=== PATIENT | female | born 1970 | race Two or more races ===

== ENCOUNTER 2022-09-04 15:19 | Emergency (ER) | payer OTHER ==
[~2022-09-04] VITALS: Ht 160 cm; Wt 111.7 kg
[2022-09-04 15:48] VITALS: BP 155/81
[2022-09-04] MEDS ORDERED: KETOROLAC TROMETH 60MG/2ML VIAL IM ONE (16:45)
[2022-09-04] MEDS ORDERED: IBUP800T27 PO (18:13)
[2022-09-04] MEDS ORDERED: METH750T22 PO (18:13)
== END 2022-09-04 18:17 | disposition home or self-care (01) ==
LOC: ER 15:21
DX: S52.125A Nondisplaced fracture of head of left radius, initial encounter for closed fracture (principal); S43.402A Unspecified sprain of left shoulder joint, initial encounter; S63.92XA Sprain of unspecified part of left wrist and hand, initial encounter; S29.011A Strain of muscle and tendon of front wall of thorax, initial encounter; Z88.6 Allergy status to analgesic agent; Z88.0 Allergy status to penicillin; W01.0XXA Fall on same level from slipping, tripping and stumbling without subsequent striking against object, initial encounter; Y93.89 Activity, other specified; Y92.89 Other specified places as the place of occurrence of the external cause; Y99.8 Other external cause status
CPT/HCPCS: 29105; 71046; 73030; 73080; 73130; 96372; 99284; J1885

== ENCOUNTER 2024-03-12 07:25 | Inpatient (IN) | payer BC, OTHER ==
[~2024-03-12] VITALS: Ht 161.3 cm; Wt 109.0 kg
[~2024-03-12 07:25] MED LIST: IBUP-1456 PO; METH-1182 PO
[2024-03-12 08:06] LABS: Basophils # (auto) 0.1 10 ^3/uL (0-0.2); Basophils % (auto) 1.4 % (0.0-2.0); Eosinophils # (auto) 0.5 10 ^3/uL (0-0.8); Eosinophils % (auto) 11.4 % (0.0-7.0); Hematocrit 38.1 % (36.0-46.0); Hemoglobin 12.2 g/dL (12.2-16.2); Lymphocytes # (auto) 1.5 10 ^3/uL (0.4-5.4); Lymphocytes % (auto) 31.3 % (10.0-50.0); Mean Corpuscular Hemoglobin 27.5 pg (28.0-32.0); Mean Corpuscular Hgb Conc. 32.1 g/dL (32.0-36.0); Mean Corpuscular Volume 85.8 fL (80.0-100.0); Monocytes # (auto) 0.3 10 ^3/uL (0-1.3); Monocytes % (auto) 5.4 % (0.0-12.0); Neutrophils # (auto) 2.4 10 ^3/uL (1.6-8.6); Neutrophils % (auto) 50.5 % (37.0-80.0); Red Blood Cells 4.45 10^6/uL (4.0-5.20); Red Cell Distribution Width 14.9 % (11.8-14.3); White Blood Cell 4.7 10^3/uL (4.4-10.8)
[2024-03-12 08:11] LABS: Alanine Aminotransferase 40 U/L (7-40); Albumin 4.5 g/dL (3.2-4.8); Alkaline Phosphatase 135 U/L (46-116); Anion Gap 7 (5-15); Aspartate Aminotransferase 24 U/L (13-40); BUN/Creatinine Ratio 13.1 (10.0-20.0); Bilirubin, Total 0.4 mg/dL (0.2-1.0); Blood Urea Nitrogen 11 mg/dL (9-23); Calcium 9.5 mg/dL (8.5-10.1); Carbon Dioxide 26 mmol/L (20-30); Chloride 107 mmol/L (98-107); Glucose 106 mg/dL (74-106); Potassium 3.7 mmol/L (3.5-5.1); Sodium 140 mmol/L (136-145); Total Protein 7.1 g/dL (5.7-8.2)
[2024-03-12] MEDS ORDERED: metroNIDAZOLE 500MG/100ML 100 ML IV ONE (08:30)
[2024-03-12] MEDS ORDERED: levoFLOXacin 500MG 100 ML IV ONE (08:30)
[2024-03-12 08:59] LABS: Urine Bacteria FEW /hpf (None Seen); Urine Blood Negative /uL (Negative); Urine Clarity Turbid (Clear); Urine Color Light-Yellow (Yellow); Urine Hyaline Cast FEW /lpf (0 - 2); Urine Mucus FEW (None Seen); Urine Protein, UAD Negative (Negative); Urine Specific Gravity 1.019 (1.001-1.035); Urine Urobilinogen Normal (Negative); Urine WBC 18 /hpf (0 - 5); Urine pH 5.5 (5.0-9.0)
[2024-03-12] MEDS: PANTOPRAZOLE 40 MG/10 ML VIAL INJ IV ONE (09:30)
[2024-03-12] MEDS ORDERED: MORPHINE SULFATE 4 MG/ML SYR/VIAL IV PRN (09:30)
[2024-03-12] MEDS ORDERED: NITROGLYCERIN 0.4 MG SL TAB SL PRN (09:30)
[2024-03-12] MEDS: PANTOPRAZOLE 40 MG/10 ML VIAL INJ IV SCH (10:00)
[2024-03-12 10:02] LABS: INR 1.12 (0.9-1.15); Prothrombin Time 11.8 sec (9.3-11.8)
[2024-03-12] MEDS: METOPROLOL TARTRATE 25 MG TAB PO SCH (10:33)
[2024-03-12] MEDS: ASPirin 81 mg TAB PO SCH (10:34)
[2024-03-12] MEDS: DOCUSATE SOD 100 MG CAP PO SCH (10:34)
[2024-03-12 12:36] LABS: Triglycerides 65 mg/dL (< 150)
[2024-03-12 12:37] LABS: LDL Cholesterol 148 mg/dL (< 100)
[2024-03-12 12:38] LABS: Cholesterol 212 mg/dL (< 200); HDL Cholesterol 56 mg/dL (40-59)
[2024-03-12] MEDS ORDERED: hydrALAZINE HCL 20 MG/ML VL IV PRN (17:45)
[2024-03-12] MEDS ORDERED: LORazepam 2MG/ML-1ML VIAL IV PRN (19:45)
[2024-03-12] MEDS: ATORVASTATIN 20 MG TAB PO SCH (22:00)
[2024-03-12 22:01] VITALS: PULSE 74; RESP 16; O2SAT 100
[2024-03-13] VITALS (11 sets, daily range): BP systolic 105–147; BP diastolic 48–77; PULSE 63–79; RESP 15–20; TEMP 97.2–98.6; O2SAT 95–98
[2024-03-13] MEDS: ENOXAPARIN SOD 120 MG/0.8 ML SYRINGE SC SCH (00:47)
[2024-03-13 06:43] LABS: Basophils # (auto) 0.1 10 ^3/uL (0-0.2); Eosinophils # (auto) 0.5 10 ^3/uL (0-0.8); Eosinophils % (auto) 10.1 % (0.0-7.0); Hemoglobin 11.4 g/dL (12.2-16.2); Lymphocytes # (auto) 1.3 10 ^3/uL (0.4-5.4); Lymphocytes % (auto) 24.9 % (10.0-50.0); Mean Corpuscular Hemoglobin 27.9 pg (28.0-32.0); Mean Corpuscular Hgb Conc. 32.5 g/dL (32.0-36.0); Mean Corpuscular Volume 85.9 fL (80.0-100.0); Monocytes # (auto) 0.4 10 ^3/uL (0-1.3); Monocytes % (auto) 6.9 % (0.0-12.0); Neutrophils # (auto) 3.1 10 ^3/uL (1.6-8.6); Neutrophils % (auto) 57.1 % (37.0-80.0); Red Blood Cells 4.07 10^6/uL (4.0-5.20); Red Cell Distribution Width 15.1 % (11.8-14.3); White Blood Cell 5.4 10^3/uL (4.4-10.8)
[2024-03-13 07:05] LABS: Alanine Aminotransferase 43 U/L (7-40); Alkaline Phosphatase 117 U/L (46-116); Anion Gap 6 (5-15); Aspartate Aminotransferase 23 U/L (13-40); BUN/Creatinine Ratio 15.8 (10.0-20.0); Blood Urea Nitrogen 12 mg/dL (9-23); Carbon Dioxide 27 mmol/L (20-30); Chloride 106 mmol/L (98-107); Glucose 97 mg/dL (74-106); Potassium 3.7 mmol/L (3.5-5.1); Sodium 139 mmol/L (136-145)
[2024-03-13 07:06] LABS: Total Protein 6.4 g/dL (5.7-8.2)
[2024-03-13 07:26] LABS: Bilirubin, Total 0.5 mg/dL (0.2-1.0)
[2024-03-13] MEDS: ACETAMINOPHEN 325 MG TAB PO PRN (11:24)
[2024-03-13] MEDS: cefTRIAXone 1GM/50ML D5W 50 ML IV SCH (11:27)
[2024-03-13] MEDS: ONDANSETRON HCL 4 MG/2 ML VIAL IV PRN (11:35)
[2024-03-13] MEDS: IBUPROFEN 600 MG TAB PO ONE (15:36)
[2024-03-13 16:52] LABS: Amphetamine Screen, Urine Neg (NEGATIVE); Barbiturate Scree,Urine Neg (NEGATIVE); Benzodiazephine Screen, Urine Neg (NEGATIVE)
[2024-03-13 16:53] LABS: Cannabinoid Screen, Urine Neg (NEGATIVE); Cocaine Screen, Urine Neg (NEGATIVE); Opiate Scree,Urine Neg (NEGATIVE); Phencyclidine Screen, Urine Neg (NEGATIVE)
[2024-03-14 00:44] VITALS: BP 134/73; PULSE 68; RESP 14; TEMP 97; O2SAT 94
[2024-03-14 05:00] VITALS: BP 123/55; PULSE 74; RESP 20; TEMP 97.9; O2SAT 96
[2024-03-14 06:18] LABS: Basophils # (auto) 0 10 ^3/uL (0-0.2); Basophils % (auto) 0.9 % (0.0-2.0); Eosinophils # (auto) 0.3 10 ^3/uL (0-0.8); Eosinophils % (auto) 5.1 % (0.0-7.0); Hematocrit 35.8 % (36.0-46.0); Hemoglobin 11.3 g/dL (12.2-16.2); Lymphocytes # (auto) 1.3 10 ^3/uL (0.4-5.4); Lymphocytes % (auto) 24.3 % (10.0-50.0); Mean Corpuscular Hemoglobin 27.5 pg (28.0-32.0); Mean Corpuscular Hgb Conc. 31.6 g/dL (32.0-36.0); Mean Corpuscular Volume 86.9 fL (80.0-100.0); Monocytes # (auto) 0.3 10 ^3/uL (0-1.3); Monocytes % (auto) 5.3 % (0.0-12.0); Neutrophils # (auto) 3.3 10 ^3/uL (1.6-8.6); Neutrophils % (auto) 64.4 % (37.0-80.0); Red Blood Cells 4.13 10^6/uL (4.0-5.20); Red Cell Distribution Width 15.1 % (11.8-14.3); White Blood Cell 5.2 10^3/uL (4.4-10.8)
[2024-03-14 06:37] LABS: Alanine Aminotransferase 40 U/L (7-40); Albumin 4.1 g/dL (3.2-4.8); Alkaline Phosphatase 122 U/L (46-116); Anion Gap 5 (5-15); Aspartate Aminotransferase 21 U/L (13-40); BUN/Creatinine Ratio 9.3 (10.0-20.0); Blood Urea Nitrogen 7 mg/dL (9-23); Carbon Dioxide 27 mmol/L (20-30); Chloride 108 mmol/L (98-107); Glucose 97 mg/dL (74-106); Potassium 3.5 mmol/L (3.5-5.1); Sodium 140 mmol/L (136-145)
[2024-03-14 06:38] LABS: Bilirubin, Total 0.4 mg/dL (0.2-1.0); Total Protein 6.4 g/dL (5.7-8.2)
[2024-03-14 08:00] VITALS: BP 139/73; PULSE 60; PULSE 75; RESP 20; TEMP 97.5; O2SAT 97
[2024-03-14] MEDS: ASPirin-EC 325mg tab PO ONE (10:47)
[2024-03-14] MEDS: REGADENOSON 0.4 MG/5 ML SYRG IV ONE ×2 (11:42→11:58)
[2024-03-14 13:30] VITALS: BP 123/77; PULSE 57; RESP 18; TEMP 97.3; O2SAT 96
[2024-03-14] MEDS ORDERED: ASPI1TAB19 PO (15:20)
[2024-03-14 16:00] VITALS: BP 132/66; PULSE 54; RESP 18; TEMP 97.5; O2SAT 98
[2024-03-15 09:18] LABS: Hepatitis B Surface Antigen Negative (Negative)
[2024-03-15 09:38] LABS: Hepatitis C Antibody Negative (Negative)
== END 2024-03-14 18:30 | disposition home or self-care (01) | DRG 392 ==
LOC: ER 07:25 → TELE-WESTW 09:34 → OVERFLOW 09:34 → TELE-WESTW 22:58
PROVIDERS: ADMIT Internal Medicine; ATTEND Emergency Medicine
DX: K52.9 Noninfective gastroenteritis and colitis, unspecified (principal); N39.0 Urinary tract infection, site not specified; Z68.41 Body mass index [BMI] 40.0-44.9, adult; E66.9 Obesity, unspecified; F41.9 Anxiety disorder, unspecified; I10 Essential (primary) hypertension; J45.909 Unspecified asthma, uncomplicated; D64.9 Anemia, unspecified; K21.9 Gastro-esophageal reflux disease without esophagitis; F17.200 Nicotine dependence, unspecified, uncomplicated; E78.2 Mixed hyperlipidemia; Z90.710 Acquired absence of both cervix and uterus; Z88.6 Allergy status to analgesic agent; Z88.0 Allergy status to penicillin; Z90.49 Acquired absence of other specified parts of digestive tract; Z83.3 Family history of diabetes mellitus; Z82.49 Family history of ischemic heart disease and other diseases of the circulatory system
CPT/HCPCS: 36415; 70450; 70551; 71045; 78452; 80053; 80061; 80307; 81001; 83735; 84484; 85025; 85379; 85610; 86803; 87086; 87340; 93005; 93017; 93306; 93886; C9113; G0378; J2405